=== PATIENT | female | born 1955 | race African-American/Black ===

== ENCOUNTER 2022-09-05 20:02 | Emergency (ER) | payer MEDICARE, MEDICAID ==
[~2022-09-05] VITALS: Ht 170.2 cm; Wt 220.0 kg
[2022-09-05 20:44] VITALS: TEMP 99.3; O2SAT 98
[2022-09-05 22:15] VITALS: BP 125/87; PULSE 113; RESP 15
[2022-09-05] MEDS ORDERED: IBUPROFEN 600MG TABLET PO ONE (22:15)
[2022-09-06] MEDS ORDERED: NAPR-1129 MT (00:14)
== END 2022-09-06 01:04 | disposition home or self-care (01) ==
LOC: ER 20:02
DX: S69.91XA Unspecified injury of right wrist, hand and finger(s), initial encounter (principal); S89.92XA Unspecified injury of left lower leg, initial encounter; W18.39XA Other fall on same level, initial encounter; Y93.89 Activity, other specified; Y92.89 Other specified places as the place of occurrence of the external cause; Y99.8 Other external cause status; Z90.710 Acquired absence of both cervix and uterus
CPT/HCPCS: 99284; 73100; 73120; 73560; 73590; 29125; L1830